=== PATIENT | male | born 1970 | race Caucasian/White ===

== ENCOUNTER 2018-11-27 17:31 | Emergency (ER) | payer SELFPAY ==
[~2018-11-27] VITALS: Ht 190.5 cm; Wt 99.8 kg
--- NOTE | 2018-11-27 18:24 | NUR ---
Patient discharged to home in stable conditon. Written and verbal after care instructions given. Patient verbalizes understanding of instructions.PT WALKS IN STEADY GAIT. NO SIGN OF DISTRESS.
== END 2018-11-27 18:37 | disposition home or self-care (01) ==
LOC: ER 17:31
DX: F41.0 Panic disorder [episodic paroxysmal anxiety] (principal); Z76.0 Encounter for issue of repeat prescription; F17.200 Nicotine dependence, unspecified, uncomplicated
CPT/HCPCS: A4663

== ENCOUNTER 2018-12-25 19:40 | Emergency (ER) | payer SELFPAY ==
[~2018-12-25] VITALS: Ht 190.5 cm; Wt 104.3 kg
--- NOTE | 2018-12-25 21:15 | NUR ---
Patient discharged to home in stable conditon. Written and verbal after care instructions given. Patient verbalizes understanding of instructions. WALKED OUT OF ER WITH NO DISTRESS NOTED
== END 2018-12-25 21:15 | disposition home or self-care (01) ==
LOC: ER 19:40
DX: F41.9 Anxiety disorder, unspecified (principal); Z76.0 Encounter for issue of repeat prescription; F17.200 Nicotine dependence, unspecified, uncomplicated
CPT/HCPCS: A4663

== ENCOUNTER 2019-03-13 11:49 | Emergency (ER) | payer SELFPAY ==
[~2019-03-13] VITALS: Ht 190.5 cm; Wt 104.3 kg
--- NOTE | 2019-03-13 12:05 | NUR ---
PT WAS EVALUATED BY DR RAZO. PT ELOPED AT 1205. DR RAZO NOTIFIED.
== END 2019-03-13 12:07 | disposition left against medical advice (07) ==
LOC: ER 11:49
DX: F41.9 Anxiety disorder, unspecified (principal); F17.210 Nicotine dependence, cigarettes, uncomplicated; Z76.0 Encounter for issue of repeat prescription
CPT/HCPCS: A4663

== ENCOUNTER 2019-08-24 13:34 | Emergency (ER) | payer SELFPAY ==
[~2019-08-24] VITALS: Ht 190.5 cm; Wt 115.7 kg
--- NOTE | 2019-08-24 14:06 | NUR ---
PATIENT WAS SEEN BY . DC, RX AND FOLLOW UP INSTRUCTIONS GIVEN AND EXPLAINED TO PATIENT WHO STATES HE UNDERSTANDS ALL INSTRUCTIONS INCLUDING ALL [facility] PRECAUTIONS
== END 2019-08-24 14:08 | disposition home or self-care (01) ==
LOC: ER 13:34
DX: F41.9 Anxiety disorder, unspecified (principal); F17.210 Nicotine dependence, cigarettes, uncomplicated; F41.0 Panic disorder [episodic paroxysmal anxiety]; Z76.0 Encounter for issue of repeat prescription
CPT/HCPCS: A4663

== ENCOUNTER 2019-10-10 21:08 | Emergency (ER) | payer SELFPAY ==
[~2019-10-10] VITALS: Ht 190.5 cm; Wt 102.1 kg
--- NOTE | 2019-10-10 23:00 | NUR ---
EVALUATED PT, OFFERED HIM ATIVAN 1 MG PO. PT REFUSED AND LEFT FACILITY. PT ELOPED..
== END 2019-10-10 23:02 | disposition left against medical advice (07) ==
LOC: ER 21:11
DX: F41.9 Anxiety disorder, unspecified (principal); F17.210 Nicotine dependence, cigarettes, uncomplicated; Z76.0 Encounter for issue of repeat prescription
CPT/HCPCS: A4663

== ENCOUNTER 2021-05-19 23:10 | Emergency (ER) | payer SELFPAY ==
[~2021-05-19] VITALS: Ht 185.4 cm; Wt 102.1 kg
[2021-05-19] MEDS ORDERED: OXYCODONE/APAP 5-325 MG TABLET PO ONE (23:45)
[2021-05-19] MEDS ORDERED: OXYCODONE/APAP 5-325 MG TABLET ONE (23:51)
[2021-05-20] MEDS ORDERED: ALPR2TAB7 PO (00:12)
[2021-05-20] MEDS ORDERED: HYDR-4209 PO (00:12)
--- NOTE | 2021-05-20 00:50 | NUR ---
Patient discharged to home in stable condition. Written and verbal after care instructions given. Patient verbalizes understanding of instructions. Stressed follow up or return to ER for worsening s/s.
[2021-05-20 00:53] VITALS: BP 133/81
== END 2021-05-20 00:54 | disposition home or self-care (01) ==
LOC: ER 23:12
DX: S63.610A Unspecified sprain of right index finger, initial encounter (principal); W01.10XA Fall on same level from slipping, tripping and stumbling with subsequent striking against unspecified object, initial encounter; Y92.039 Unspecified place in apartment as the place of occurrence of the external cause; F17.210 Nicotine dependence, cigarettes, uncomplicated; F41.0 Panic disorder [episodic paroxysmal anxiety]; F13.20 Sedative, hypnotic or anxiolytic dependence, uncomplicated
CPT/HCPCS: 73140; A4663

== ENCOUNTER 2021-06-17 00:10 | Emergency (ER) | payer SELFPAY ==
[~2021-06-17] VITALS: Ht 190.5 cm; Wt 99.8 kg
[~2021-06-17 00:10] MED LIST: ALPR2TAB7 PO; HYDR-4209 PO
[2021-06-17] MEDS ORDERED: LORA-259 PO (01:26)
== END 2021-06-17 01:30 | disposition home or self-care (01) ==
LOC: ER 00:14
DX: F41.9 Anxiety disorder, unspecified (principal); R00.0 Tachycardia, unspecified; F17.210 Nicotine dependence, cigarettes, uncomplicated; Z83.3 Family history of diabetes mellitus
CPT/HCPCS: A4663

== ENCOUNTER 2021-11-02 06:30 | Emergency (ER) | payer SELFPAY ==
[~2021-11-02] VITALS: Ht 190.5 cm; Wt 95.3 kg
[~2021-11-02 06:30] MED LIST changes: +LORA-259 PO
--- NOTE | 2021-11-02 07:20 | NUR ---
Dr Spaulding at the bedside for MSE.
[2021-11-02] MEDS ORDERED: LORAZEPAM 0.5 MG TABLET PO ONE (07:30)
[2021-11-02] MEDS ORDERED: LORA-259 PO (07:33)
[2021-11-02 07:34] VITALS: BP 120/82
[2021-11-02] MEDS ORDERED: LORAZEPAM 1 MG TABLET ONE (07:35)
== END 2021-11-02 07:39 | disposition home or self-care (01) ==
LOC: ER 06:38
DX: F41.9 Anxiety disorder, unspecified (principal); Z83.3 Family history of diabetes mellitus; Z80.9 Family history of malignant neoplasm, unspecified; F17.210 Nicotine dependence, cigarettes, uncomplicated
CPT/HCPCS: A4663

== ENCOUNTER 2022-11-03 12:24 | Emergency (ER) | payer SELFPAY ==
[~2022-11-03] VITALS: Ht 190.5 cm; Wt 99.8 kg
[2022-11-03] MEDS ORDERED: ALPR2TAB7 PO (13:02)
== END 2022-11-03 13:28 | disposition home or self-care (01) ==
LOC: ER 12:24
DX: F41.9 Anxiety disorder, unspecified (principal); Z76.0 Encounter for issue of repeat prescription; F17.210 Nicotine dependence, cigarettes, uncomplicated; Z83.3 Family history of diabetes mellitus; Z82.49 Family history of ischemic heart disease and other diseases of the circulatory system; Z80.9 Family history of malignant neoplasm, unspecified
CPT/HCPCS: A4663

== ENCOUNTER 2023-09-24 22:04 | Emergency (ER) | payer SELFPAY ==
[~2023-09-24] VITALS: Ht 190.5 cm; Wt 102.1 kg
[2023-09-24] MEDS ORDERED: LORA2TAB95 PO (22:51)
[2023-09-24 23:28] VITALS: BP 124/88; TEMP 98.5; O2SAT 98
== END 2023-09-24 23:29 | disposition home or self-care (01) ==
LOC: ER 22:06
DX: F41.9 Anxiety disorder, unspecified (principal); Z76.0 Encounter for issue of repeat prescription; F17.200 Nicotine dependence, unspecified, uncomplicated; Z60.2 Problems related to living alone; Z79.899 Other long term (current) drug therapy
CPT/HCPCS: A4606; A4663

== ENCOUNTER 2023-10-29 01:08 | Emergency (ER) | payer SELFPAY ==
[~2023-10-29] VITALS: Ht 182.9 cm; Wt 102.1 kg
[~2023-10-29 01:08] MED LIST changes: +LORA2TAB95 PO
[2023-10-29] MEDS ORDERED: LORA-259 PO ×2 (02:10→02:14)
[2023-10-29] MEDS ORDERED: HYDR50TA62 PO (02:10)
[2023-10-29] MEDS ORDERED: LORAZEPAM 0.5 MG TABLET PO ONE (02:15)
[2023-10-29 02:48] VITALS: BP 141/93; O2SAT 100
== END 2023-10-29 02:48 | disposition home or self-care (01) ==
LOC: ER 01:10
DX: F41.9 Anxiety disorder, unspecified (principal); Z76.0 Encounter for issue of repeat prescription; F13.20 Sedative, hypnotic or anxiolytic dependence, uncomplicated; Z76.5 Malingerer [conscious simulation]; F17.200 Nicotine dependence, unspecified, uncomplicated; Z79.899 Other long term (current) drug therapy; Z60.2 Problems related to living alone
CPT/HCPCS: A4606; A4663

== ENCOUNTER 2024-12-28 23:55 | Emergency (ER) | payer SELFPAY ==
[~2024-12-28] VITALS: Ht 180.3 cm; Wt 99.8 kg
[~2024-12-28 23:55] MED LIST changes: +HYDR50TA62 PO
[2024-12-28 23:58] VITALS: O2SAT 98
[2024-12-29] MEDS ORDERED: LORAZEPAM 1 MG TABLET ONE (01:43)
[2024-12-29] MEDS: LORAZEPAM 0.5 MG TABLET PO ONE (01:45)
[2024-12-29 01:53] LABS: *BILIRUBIN,URIN NEGATIVE (NEGATIVE); *BLOOD, URINE NEGATIVE (NEGATIVE); *CLARITY,URINE CLEAR (CLEAR); *COLOR,URINE YELLOW (YELLOW); *KETONES,URINE NEGATIVE (NEGATIVE); *PROTEIN,URINE NEGATIVE (NEGATIVE); *UROBILINOGEN,URINE 0.2 E.U./dl (NORMAL); LEUKOCYTE ESTERASE ,URINE NEGATIVE (NEGATIVE); NITRITE, URINE NEGATIVE (NEGATIVE); UGLUCOSE NEGATIVE (NEGATIVE)
[2024-12-29] MEDS ORDERED: PARO-154 PO (01:58)
[2024-12-29 02:06] LABS: *AMPHETAMINE, URINE POSITIVE (NEGATIVE); *BARBITURATE, URINE NEGATIVE (NEGATIVE); *BENZODIAZEPINE, URINE NEGATIVE (NEGATIVE); *CANNABINOID, URINE NEGATIVE (NEGATIVE); *COCCAINE, URINE NEGATIVE (NEGATIVE); *OPIATE, URINE NEGATIVE (NEGATIVE); *PHENCYCLIDINE SCREEN,URINE NEGATIVE (NEGATIVE); FENTANYL, URINE NEGATIVE (NEGATIVE)
== END 2024-12-29 01:55 | disposition left against medical advice (07) ==
LOC: ER 23:55
DX: R30.0 Dysuria (principal); F41.9 Anxiety disorder, unspecified; F17.210 Nicotine dependence, cigarettes, uncomplicated; F43.10 Post-traumatic stress disorder, unspecified; Z79.899 Other long term (current) drug therapy; Z88.7 Allergy status to serum and vaccine; Z60.2 Problems related to living alone
CPT/HCPCS: A4606; A4663